=== PATIENT | female | born 2005 | race Caucasian/White ===

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

== ENCOUNTER 2023-02-09 05:55 | Day surgery (SDC) | payer OTHER ==
[2023-02-07 15:35] VITALS: BP 128/82
[~2023-02-09] VITALS: Ht 162.6 cm; Wt 90.9 kg
[~2023-02-09 05:55] MED LIST changes: +GABAPENTIN100 MG PO
[2023-02-09 06:13] VITALS: BP 119/70
[2023-02-09] MEDS ORDERED: VITAMIN D250 MCG PO (06:17)
--- NOTE | 2023-02-09 07:23 | NUR ---
EXERCISED MINISTRY OF PRESENCE. PT AND SENIOR PRINCIPAL PROCESS ENGINEER CONSENTED TO PRAYER. PRAYED FOR SUCCESSFUL PROCEDURE AND AWARENESS OF DIVINE PRESENCE.
--- NOTE | 2023-02-09 08:11 | NUR ---
02/09/23 0811 Megan Crystal [age] PT TO PACU DROWSY. DENIES PAIN AND NAUSEA ASKING IF SHE CAN TAKE HER HOME MEDS. PT ASKING FOR KAYLYN HER CAREGIVER AND HER DAILY MEDS. CAREGIVER BROUGHT INTO PACU FOR EMOTIONAL SUPPORT DAILY MEDS GIVEN TO PT BY KAYLYN WITH SMALL SIPS OF WATER PT TOLERATED WELL.
[2023-02-09 08:21] VITALS: BP 126/81
--- NOTE | 2023-02-10 11:48 | OR ---
[facility] [address], [place] [address] Signed DATE OF OPERATION: 02/09/2023 SURGEON: Alise Roque MD PREOPERATIVE DIAGNOSES: 1. Epigastric abdominal pain. 2. Gastroesophageal reflux disease. POSTOPERATIVE DIAGNOSES: 1. Small hiatal hernia (32-35 cm). 2. GE junction at 32 cm. PROCEDURE: EGD with CLOtest and biopsies of the antrum. ESTIMATED BLOOD LOSS: None. INDICATIONS: Aliyah is a 17-year-old young lady, who resides at at our [facility]. She had been brought to the office with her caregiver. She has had trouble for many years with acid reflux and epigastric abdominal pain. She tried to wean herself off the Protonix, but her symptoms returned. She has never undergone a previous upper endoscopy. Her primary care provider asked her to see me with consideration of upper endoscopy with biopsies. In the office, I gave her a pamphlet on upper endoscopy. We had looked at that together. There is risk including, but not limited to gas bloating, crampy abdominal pain, bleeding, perforation requiring surgery and missed diagnosis. We also reviewed the need for monitored anesthesia care given her rather extensive past medical history and long list of medications. She and the caregiver thought that was de la torre. She had expressed understanding and wished to proceed. PROCEDURE NOTE: Aliyah was taken into our endoscopy suite and placed in the supine semi-recumbent position. The posterior oropharynx was anesthetized with Hurricaine spray. A bite block was utilized for the case. She was given monitored anesthesia care per our nurse civil technician with propofol infusion. The adult gastroscope had been introduced and advanced under direct visualization of the camera without difficulty. The duodenum and pyloric channel were unremarkable. In the distal portion of her stomach, she had some mild patchy gastritis. There were no ulcerations in the pyloric bulb or the stomach. We took a biopsy of the antrum for CLOtest as well as pathologic review. The body and Electronically Signed By: ALISE ROQUE MD 02/09/23 0943 Electronically Signed By: ALISE ROQUE MD 02/10/23 1636 PATIENT NAME: ARSEN GONZALEZ OPERATIVE REPORT DATE OF : 03 REPORT #: [id number] PHYSICIAN: ALISE ROQUE MD PCP: KAREEN BELLO MD REPORT IS CONFIDENTIAL AND NOT TO BE RELEASED WITHOUT AUTHORIZATION [facility] [address], [place] [address] Signed fundus of the stomach were unremarkable. Upon retroflexion of the scope, we can see she has a small hiatal hernia. We did take a picture, but it is a little difficult due to the angle. The scope was withdrawn up through the area of the GE junction, which was compliant without stricture. There was no gastric or esophageal varices. She has a very minimal disruption to the Z-line. There was just a little bit of inflammation around the Z-line. There was no Foote's mucosa. There was no distal esophagitis. Her hiatal hernia measured out roughly from 35 cm back to 32 cm. Consequently, the GE junction is at 32 cm. The distal, middle and upper esophagus were unremarkable. The vocal cords and arytenoids were unremarkable. After this, the gas had been suctioned out and the gastroscope removed. Aliyah tolerated the procedure quite well with the help of our nurse civil technician. RECOMMENDATIONS: I will see Aliyah back in my office in 7 to 14 days to review her results. It looks like she will stay on her Protonix. Alise Roque MD ALB/MODL /[id number] cc: MD Kareen Garcia MD Copies: ALISE ROQUE MD ~ Electronically Signed By: ALISE ROQUE MD 02/09/23 0943 Electronically Signed By: ALISE ROQUE MD 02/10/23 1636 PATIENT NAME: ARSEN GONZALEZ OPERATIVE REPORT DATE OF : 03 REPORT #: [id number] PHYSICIAN: ALISE ROQUE MD PCP: KAREEN BELLO MD REPORT IS CONFIDENTIAL AND NOT TO BE RELEASED WITHOUT AUTHORIZATION
--- NOTE | 2023-02-11 17:16 | PATH ---
[facility] [address] [facility] [place], [place] [address] Signed SPECIMEN(S): A ANTRUM/PYLORUS BIOPSY SPECIMEN SOURCE: A. ANTRUM/PYLORUS BIOPSY CLINICAL HISTORY: GERD, epigastric pain. Dx: Mild gastritis, small hiatal hernia. FINAL PATHOLOGIC DIAGNOSIS: Antrum/pylorus biopsy: - Antral type mucosa with reactive features and mild chronic inflammation. - Helicobacter pylori immunostain is negative for organisms. JVR:jeromy MICROSCOPIC EXAMINATION: A Helicobacter pylori immunostain is performed with appropriate positive and negative controls on block A1 and is negative for organisms. Histologic sections of all submitted blocks are examined by light microscopy. These findings, together with the gross examination, support the pathologic diagnosis. GROSS DESCRIPTION: The specimen, labeled and designated "Wing, antrum biopsy," is received in formalin and consists of one bean soft tissue fragment, 0.2 cm. Entirely submitted in (A1). JS (under the direct supervision of a pathologist) The Gross Description was prepared using a voice recognition system. The report was reviewed for accuracy; however, sound-alike word errors, addition and/or deletions may occur. If there is any question about this report, please contact Client Services. ADDITIONAL NOTES: Immunohistochemical and/or in situ hybridization studies were performed on this case with the appropriate positive controls that react as expected. This test was developed and its performance characteristics determined by [employer]. It has not been cleared or approved by the U.S. Food and Drug Administration. The FDA has determined that such clearance or approval is not necessary. This test is used for clinical purposes. It should not be regarded as investigational or for research. [employer] is certified under the Clinical Laboratory Improvement PATIENT NAME: ARSEN GONZALEZ PATHOLOGY DATE OF : 03 REPORT #: [id number] PHYSICIAN: [facility] PATHOLOGY PCP: NAHUM BELLO MD REPORT IS CONFIDENTIAL AND NOT TO BE RELEASED WITHOUT AUTHORIZATION [facility] [address] [place], [place] [address], [place] [address] Signed Amendments of 1988 (CLIA) as qualified to perform high complexity clinical laboratory testing. This assay has not been validated for specimens that have been decalcified. PERFORMING LABORATORY: Technical component was performed by [facility], [address] [place] [address] (CLIA# [id number]). Professional interpretation was performed by [email or web address], [address] [place] [id number] (CLIA#: [id number]). Diagnostician: Jay Muro MD Pathologist Electronically Signed 02/11/2023 Copies: ~ PATIENT NAME: ARSEN GONZALEZ PATHOLOGY DATE OF : 03 REPORT #: [id number] PHYSICIAN: [facility] PCP: NAHUM BELLO MD REPORT IS CONFIDENTIAL AND NOT TO BE RELEASED WITHOUT AUTHORIZATION
== END 2023-02-09 08:33 | disposition home or self-care (01) ==
LOC: OPS 05:55 → DS 05:55 → OPS 07:30 → DS 07:30 → OPS 08:33
PROVIDERS: ATTEND Colon & Rectal Surgery
PROC: 0DB68ZX Excision of Stomach, Via Natural or Artificial Opening Endoscopic, Diagnostic (ICD-10-PCS; principal; 2023-02-09 07:30)
DX: K29.70 Gastritis, unspecified, without bleeding (principal); K44.9 Diaphragmatic hernia without obstruction or gangrene; K21.9 Gastro-esophageal reflux disease without esophagitis; Z88.0 Allergy status to penicillin
CPT/HCPCS: 00731; 36415; 87077; J2001; J2704; J7121

== ENCOUNTER 2024-10-16 09:03 | Emergency (ER) | payer MEDICARE, OTHER ==
[~2024-10-16] VITALS: Ht 162.6 cm; Wt 93.6 kg
[~2024-10-16 09:03] MED LIST changes: +BENADRYL25 MG PO; +HYDROXYZINE PAM50 MG PO; +IMITREX100 MG PO; +ONDANSETRON ODT8 MG PO; +VITAMIN D250 MCG PO
[2024-10-16] MEDS ORDERED: LAMOTRIGINE100 MG PO (09:25)
[2024-10-16] MEDS ORDERED: CETIRIZINE HCL10 MG PO (09:27)
[2024-10-16] MEDS ORDERED: SODIUM CHLORIDE 0.9% 1,000 ML IV ONE (09:30)
[2024-10-16 09:51] LABS: BASOPHILS 0.6 % (0.1-1.2); EOSINOPHILS 3.2 % (0.7-5.8); LYMPHOCYTES 23.2 % (19.3-51.7); MCH 30.0 PG (25.6-32.2); MCHC 32.8 g/dL (32.2-35.5); MCV 91.4 fL (79.4-94.8); MONOCYTES 6.0 % (4.7-12.5); NEUTROPHILS 66.9 % (34.0-71.1); RBC 4.74 M/uL (3.93-5.22)
[2024-10-16 10:06] LABS: ALT (SGPT) 27.0 U/L (14-59); AST (SGOT) 13.0 U/L (15-37); GLOMERULAR FILTRATION RATE,EST 103.0 mL/min (>60); PROTEIN, TOTAL 7.6 g/dL (6.4-8.2); UREA NITROGEN 9.0 mg/dL (7-18)
[2024-10-16] MEDS ORDERED: ONDANSETRON ODT4 MG PO (10:20)
[2024-10-16 10:41] VITALS: BP 122/79
== END 2024-10-16 10:38 | disposition home or self-care (01) ==
LOC: ED 09:03
PROVIDERS: Emergency Medicine
DX: R11.0 Nausea (principal); F43.10 Post-traumatic stress disorder, unspecified; Z79.2 Long term (current) use of antibiotics; Z68.35 Body mass index [BMI] 35.0-35.9, adult; Z88.1 Allergy status to other antibiotic agents
CPT/HCPCS: 36415; 80053; 83690; 84703; 85025; 96374; 99284-25; J2405; J7030

== ENCOUNTER 2024-11-19 20:30 | Emergency (ER) | payer MEDICARE, OTHER ==
[~2024-11-19] VITALS: Ht 162.6 cm; Wt 99.4 kg
[~2024-11-19 20:30] MED LIST changes: +CETIRIZINE HCL10 MG PO; +LAMOTRIGINE100 MG PO; +ONDANSETRON ODT4 MG PO
[2024-11-20] MEDS ORDERED: NEOMYCIN/POLYMYXIN/HYDROCORT 10 ML HOME.PACK OTIC ONE (00:45)
[2024-11-20] MEDS ORDERED: NEOMYCIN-POLYMY10 ML OTIC (01:05)
[2024-11-20 01:14] VITALS: BP 139/71
== END 2024-11-20 01:15 | disposition home or self-care (01) ==
LOC: ED 20:30
DX: H60.91 Unspecified otitis externa, right ear (principal); Z88.1 Allergy status to other antibiotic agents
CPT/HCPCS: 99282